=== PATIENT | male | born 1995 | race Caucasian/White ===

== ENCOUNTER 2023-05-15 19:38 | Inpatient (IN) ==
[2023-05-15 20:27] LABS: ABS Basophils 0.1 10^3/uL (0.0-0.1); ABS Eosinophils 0.4 10^3/uL (0.0-0.5); ABS Lymphocytes 3.8 10^3/uL (1.0-4.8); ABS Monocytes 0.9 10^3/uL (0.0-1.1); ABS Neutrophils 8.5 10^3/uL (1.5-7.6); ABS Nucleated RBC 0.01 10^3/ul; Eosinophil % 3.1 %; Hematocrit 41.4 % (38-53); Hemoglobin 13.9 g/dL (13.2-16.3); Lymphocyte % 27.7 %; Mean Corpuscular Hemoglobin 29.4 pg (27-33); Mean Corpuscular Hgb Conc 33.7 g/dL (31-36); Mean Corpuscular Volume 87.4 fL (80-97); Mean Platelet Volume 9.1 fL (7.5-11.2); Platelet Count 215 10^3/uL (150-450); Red Blood Count 4.74 10^6/uL (4.06-5.63); Red Cell Distribution Width 13.8 % (12-17); White Blood Count 13.6 10^3/uL (3.6-10.2)
[2023-05-15 20:45] LABS: Urine Appearance Cloudy; Urine Bilirubin Negative (Negative); Urine Blood Negative (Negative); Urine Color Yellow; Urine Glucose Negative (Negative); Urine Ketones Negative (Negative); Urine Nitrite Negative (Negative); Urine Protein Negative (Negative); Urine Urobilinogen Negative (Negative)
[2023-05-15 20:49] LABS: Anion Gap 8 mmol/L (2-16); CO2 Carbon Dioxide 25 mmol/L (22-32); Calcium 8.8 mg/dL (8.6-10.3); Chloride 106 mmol/L (101-111); Potassium 3.8 mmol/L (3.5-5.0); Sodium 139 mmol/L (135-145)
[2023-05-15 20:49] LABS: Urine Bacteria Absent (Absent); Urine Red Blood Cell Trace(0-2/hpf) (Absent); Urine Squamous Epithelial Cell Present (Absent); Urine White Blood Cell 2+(11-20/hpf) (Absent)
[2023-05-15 20:55] LABS: ALT 28 U/L (7-52); AST 17 U/L (13-39); Albumin/Globulin Ratio 1.3 (1-3); Alkaline Phosphatase 42 U/L (35-149); Blood Urea Nitrogen 10 mg/dL (6-24); Creatinine, Serum 0.93 mg/dL (0.67-1.17); Glucose 106 mg/dL (70-100); eGFR CKD-EPI 113.3 (>60)
[2023-05-15 21:12] LABS: Acetaminophen < 15 mcg/mL; Salicylate < 2.50 mg/dL (<30)
[2023-05-16] MEDS ORDERED: Metformin ER 500 mg TAB (NF) PO ONE (08:40)
[2023-05-16] MEDS ORDERED: Al Hydrox/Mg Hydrox/Simet LIQ 30 ML UDC PO PRN (09:02)
[2023-05-16 15:22] LABS: TSH Ultra Thyroid Stim Horm 1.97 mcIU/mL (0.34-5.60)
[2023-05-17 10:29] VITALS: BP 145/73
[2023-05-18 08:53] LABS: HDL Cholesterol 38.4 mg/dL
[2023-05-20] MEDS ORDERED: [UNRECOGNIZED DRUG - REMARK] SUBCUT SCH (09:00)
[2023-05-22 23:08] LABS: Amphetamines Screen Blood None Detected; Cannabinoids Screen Blood None Detected; Cocaine Metabolites Screen Bl None Detected; Fentanyl/Acetyl FentanylScreen None Detected; Methadone Metabolites Scrn Bl None Detected; Methamphetamines/MDMA Screen None Detected; Opiates Screen Blood None Detected; Oxycodone/Oxymorphone Scrn Bl None Detected; Phencyclidine Screen Blood None Detected
== END 2023-05-18 13:30 | disposition home or self-care (01) | DRG 751 ==
LOC: ED 19:38 → EDHOLD 05-16 09:02 → BSU 05-16 12:00
PROVIDERS: ADMIT Psychiatry & Neurology Psychiatry; ATTEND Psychiatry & Neurology Psychiatry